=== PATIENT | male | born 1980 | race Two or more races ===

== ENCOUNTER 2018-11-30 12:30 | Outpatient (CLI) | payer OTHER ==
--- NOTE | 2018-11-30 16:49 | MRI Report ---
Reason: PAIN IN LEFT KNEE Procedure Date: 11/30/2018 Accession Number: [id number] / [id number] Procedure: MRI - Knee LT W/O CPT Code: FULL RESULT: EXAM: LEFT KNEE MRI WITHOUT CONTRAST EXAM DATE: 11/30/2018 01:28 PM. CLINICAL HISTORY: Left knee pain for several weeks. COMPARISON: None. TECHNIQUE: Multiplanar, multisequence T1-weighted and fluid-sensitive sequences of the knee without contrast. Other: None. FINDINGS: Bones: No fractures or subluxations. No marrow edema. No bone lesions. Articular Cartilage: Unremarkable. Medial Meniscus: There is a nondisplaced vertical tear of the body of the medial meniscus. Lateral Meniscus: The lateral meniscus is intact. Cruciate Ligaments: The anterior and posterior cruciate ligaments are intact. Collateral Ligaments: The medial collateral and lateral collateral ligamentous structures are intact. Tendons: The quadriceps, patellar, semimembranosus, and popliteus tendons are unremarkable. Musculature: No edema or fatty atrophy. Other: There is a small joint effusion. No popliteal cyst. No loose bodies. The medial and lateral retinacula are intact. The subcutaneous tissues and fat pads are unremarkable. IMPRESSION: 1. Small joint effusion. 2. Nondisplaced vertical tear of the body of the medial meniscus. [facility] MUSCULOSKELET[facility]IOLOGY SECTION
== END 2018-11-30 12:31 | disposition home or self-care (01) ==
LOC: DI 12:30
DX: S83.242A Other tear of medial meniscus, current injury, left knee, initial encounter (principal); M25.462 Effusion, left knee

== ENCOUNTER 2019-02-05 10:51 | Day surgery (SDC) | payer OTHER ==
[2019-02-05] MEDS ORDERED: LACTATED RINGERS 1,000 ML IV ONE (11:01)
[2019-02-05] MEDS ORDERED: CLINDAMYCIN 600 MG/50 ML 50 ML IV ONE (11:01)
[2019-02-05] MEDS ORDERED: BUPIVACAINE 0.25% PF 10 ML VIAL ONE (12:22)
[2019-02-05] MEDS ORDERED: EPINEPHrine 1 MG/ML AMP ONE (12:26)
--- NOTE | 2019-02-05 12:41 | ANESTHESIA ---
Pre-Anesthesia VS, & Labs - Diagnosis Left knee meniscal tear - Procedure Left knee scope Vital Signs: Temp Pulse Resp BP Pulse Ox 36.4 C L 90 16 143/100 H 97 02/05/19 11:08 02/05/19 11:08 02/05/19 11:08 02/05/19 11:08 02/05/19 11:08 Height 5 ft 8 in Weight (kg) 90.72 kg - NPO >8 hours Home Medications and Allergies Allergies/Adverse Reactions: Allergies Allergy/AdvReac Type Severity Reaction Status Date / Time Penicillins Allergy Unknown Verified 01/18/19 10:30 Sulfa (Sulfonamide Allergy Rash Verified 01/18/19 10:30 Antibiotics) Anes History & Medical History - Anesthetic History Anesthesia Complications: reports: No previous complications - Medical History Cardiovascular: reports: None Pulmonary: reports: None Gastrointestinal: reports: None Urinary: reports: None Musculoskeletal: reports: Other Endocrine/Autoimmune: reports: None Skin: reports: None Smoking Status: Former smoker Exam General: Alert Dental: WNL Mouth Opening: Greater than 4 Fingerbreadths Mallampati classification: I Thyromental Distance: greater than 6 cm Respiratory: Lungs clear Cardiovascular: Regular rate Plan Anesthesia Type: General Consent for Procedure(s) Verified and Reviewed: Yes Code Status: Attempt Resuscitation ASA classification: 1-Healthy patient Is this case an emergency?: No
[2019-02-05] MEDS ORDERED: PROPOFOL 200 MG/20 ML VIAL IVP ONE (13:55)
[2019-02-05] MEDS ORDERED: LIDOCAINE-MPF 2% 5 ML VIAL IM ONE (13:55)
[2019-02-05] MEDS ORDERED: MIDAZOLAM 2 MG/2 ML VIAL IVP ONE (13:55)
[2019-02-05] MEDS ORDERED: KETOROLAC 30 MG/ML VIAL IVP ONE (13:55)
[2019-02-05] MEDS ORDERED: ONDANSETRON 4 MG/2 ML VIAL IVP ONE (13:55)
[2019-02-05] MEDS ORDERED: fentaNYL 100 MCG/2 ML VIAL IVP ONE (13:55)
[2019-02-05] MEDS ORDERED: DEXAMETHASONE 4 MG/ML VIAL IVP ONE (13:55)
[2019-02-05] MEDS ORDERED: EPINEPHrine 1 MG/ML AMP IR ONE (13:58)
[2019-02-05] MEDS ORDERED: BUPIVACAINE 0.25% PF 30 ML VIAL SUBQ ONE ×2 (13:58)
[2019-02-05] MEDS ORDERED: ONDANSETRON 4 MG/2 ML VIAL IVP PRN (14:27)
[2019-02-05] MEDS ORDERED: oxyCODONE 5 MG TABLET PO PRN (14:27)
--- NOTE | 2019-02-05 14:34 | OPERATIVE REPORT ---
Operative Report - Other Other Information/Narrative: Date of Surgery: 05 February 2019 Pre-Op Diagnosis: Left knee medial meniscus tear, medial plica Procedure: Left knee arthroscopic medial meniscus debridement, medial plica excision Postop Diagnosis: Same Primary Surgeon: Gera Maravilla Secondary Surgeon: Nadeem THAKUR Complications: None Tourniquet Time: 29 minutes EBL: 5 cc Indication For Surgery: 38-year-old male who has had years of intermittent left knee pain and had one episode of locking some time ago developed constant medial sided left knee pain over the last few months. It was not responsive to conservative measures.. The risks, benefits, and alternatives were discussed. Risks include pain, bleeding, infection, damage to nearby structures and cartilage, lack of symptom relief, need for further surgery, DVT, PE, stroke, and . Written consent was obtained. Examination Under Anesthesia: ROM equal to the contralateral side. Stable dial at 30 & 90 degrees. Stable to varus and valgus stressing at 0 & 30 degrees. 1 a Roldan. Mild glide consistent with the other side on Pivot shift. Small mechanical sensation is felt medially when straightening the knee from a fully flexed position Arthroscopic Findings: No loose bodies. Synovium showed an exuberant fat pad, ligamentum mucosa, and medial plica. Patella cartilage normal. Trochlear cartilage normal. Medial femoral condyle cartilage was largely intact. Medial tibial plateau cartilage was normal. Medial meniscus showed a tear on the underside at the junction of the body and the posterior horn, with an unstable associated flap and degenerative tissue adjacent to it. ACL was intact. PCL was intact. Lateral femoral condyle cartilage intact. Lateral tibial plateau cartilage intact. Lateral meniscus intact. Procedure in Detail: The patient was met in the pre-operative hold area on the day of the procedure. The operative extremity was signed and questions were answered. The patient was brought to the operating room and a general anesthetic was administered. Supine position was used and bony prominences were padded. An examination under anesthesia was performed. Standard prepping and draping was performed. A time out confirmed patient identification, laterality, procedure, allergies, antibiotics, and images. An Esmarch was used to exsanguinate the limb and the tourniquet was elevated to 250 mmHg. A standard diagnostic arthroscopy of the knee was performed through anterolateral and anteromedial portal sites. The anteromedial portal was created under direct visualization after localizing with a spinal needle. The findings can be found above. I then proceeded to use a biter and shaver to debride all unstable and degenerative portions of the medial meniscus. I smoothed out the edges to make no sharp transitions. I then used a shaver to remove all of the medial plica and take down the ligamentum mucosum. Final images were taken and all arthroscopic fluid and instruments were removed from the knee. The incisions were closed with buried monocryl sutures. Steri strips were applied. 20 cc of 0.25% Marcaine without epinephrine was injected near the portal sites. A sterile dressing and compression stocking was placed. The patient was awakened and transferred to recovery in stable condition.
[2019-02-05] MEDS ORDERED: oxyCODONE 5 MG TABLET ONE (15:03)
[2019-02-05 15:14] VITALS: BP 134/86
== END 2019-02-05 10:52 | disposition home or self-care (01) ==
LOC: SDS 10:51
PROVIDERS: ATTEND Orthopaedic Surgery
PROC: 0SBD4ZZ Excision of Left Knee Joint, Percutaneous Endoscopic Approach (ICD-10-PCS; principal; 2019-02-05 12:15)
DX: S83.242A Other tear of medial meniscus, current injury, left knee, initial encounter (principal); M67.52 Plica syndrome, left knee; Z87.891 Personal history of nicotine dependence
CPT/HCPCS: 29881; A9270; J7120

== ENCOUNTER 2019-04-12 11:28 | Emergency (ER) | payer OTHER ==
[2019-04-12] MEDS ORDERED: SODIUM CHLORIDE 0.9% 1,000 ML IV ONE (11:58)
[2019-04-12] MEDS ORDERED: KETOROLAC 30 MG/ML VIAL IVP STA (11:58)
--- NOTE | 2019-04-12 12:01 | ED Physician Documentation ---
PD HPI ABD PAIN - Stated complaint Stated Complaint: MALE /LOWER ABD PX - Chief complaint Chief Complaint: General - History obtained from History obtained from: Patient - History of Present Illness Timing - onset: Today Timing - duration: Minutes Timing - details: Abrupt onset, Still present in ED Pain level max: 8 Pain level now: 8 Quality: Cramping, Sharp, Pain Location: Other (right testicle) Radiation: Right flank Improved by: Other (nothing) Worsened by: Other (nothing) Associated symptoms: Nausea. No: Vomiting Similar symptoms before: Has not had sx before Recently seen: Not recently seen - Additional information Additional information: 38-year-old male in his usual state of good health developed sudden onset of pain in the right testicle which has begun to radiate up into his right flank. There are no modifying factors patient is afebrile and has not vomited. Review of Systems Constitutional: denies: Fever Eyes: denies: Decreased vision Ears: denies: Ear pain Nose: denies: Congestion Throat: denies: Sore throat Respiratory: denies: Cough GI: reports: Abdominal Pain, Nausea : denies: Dysuria, Frequency PD PAST MEDICAL HISTORY - Past Medical History Past Medical History: No Cardiovascular: None Respiratory: None Endocrine/Autoimmune: None GI: None : None HEENT: None Psych: None Musculoskeletal: Other Derm: None - Past Surgical History Past Surgical History: Yes Ortho: Arthroscopic surgery - Present Medications Home Medications: Ambulatory Orders Medication Instructions Recorded Confirmed Hydrocodone/Acetaminophen 1 - 2 each PO Q6H PRN #14 tablet 04/12/19 [Hydrocodon-Acetaminophen 5-325] - Allergies Allergies/Adverse Reactions: Allergies Allergy/AdvReac Type Severity Reaction Status Date / Time Penicillins Allergy Unknown Verified 04/12/19 11:33 Sulfa (Sulfonamide Allergy Rash Verified 04/12/19 11:33 Antibiotics) - Social History Does the pt smoke?: No Smoking Status: Never smoker Does the pt drink ETOH?: Yes Does the pt have substance abuse?: No - Immunizations Immunizations are current?: Yes - POLST Patient has POLST: No PD ED PE NORMAL - Vitals Vital signs reviewed: Yes (hypertensive ) - General General: Alert and oriented X 3, No acute distress, Well developed/nourished - HEENT HEENT: Atraumatic, PERRL, EOMI - Neck Neck: Supple, no meningeal sign, No bony TTP - Cardiac Cardiac: RRR, No murmur - Respiratory Respiratory: No respiratory distress - Abdomen Abdomen: Normal bowel sounds, Soft, Non tender, Non distended, No organomegaly - Back Back: No CVA TTP, No spinal TTP - Derm Derm: Normal color, Warm and dry, No rash - Extremities Extremities: No deformity, No edema - Neuro Neuro: Alert and oriented X 3, display department manager 2-12 intact, No motor deficit, No sensory deficit, Normal speech Eye Opening: Spontaneous Motor: Obeys Commands Verbal: Oriented GCS Score: 15 - Psych Psych: Normal mood, Normal affect Results - Vitals Vitals: Vital Signs - 24 hr 04/12/19 11:31 Temperature 36.6 C Heart Rate 100 Respiratory 14 Rate Blood Pressure 178/104 H O2 Saturation 95 Oxygen O2 Source Room air - Labs Labs: Laboratory Tests 04/12/19 04/12/19 11:45 11:45 WBC 9.7 RBC 5.26 Hgb 15.3 Hct 44.7 MCV 85.0 MCH 29.1 MCHC 34.3 RDW 13.5 Plt Count 199 MPV 10.5 Neut # (Auto) 6.3 Lymph # (Auto) 2.6 Stevens # (Auto) 0.5 Eos # (Auto) 0.2 Baso # (Auto) 0.1 Absolute Nucleated RBC 0.00 Nucleated RBC % 0.0 Sodium 137 Potassium 3.5 Chloride 105 Carbon Dioxide 22 Anion Gap 10.0 BUN 12 Creatinine 1.1 Estimated GFR (MDRD) 76 L Glucose 124 H Calcium 9.5 Total Bilirubin 0.9 AST 50 H ALT 78 H Alkaline Phosphatase 56 Total Protein 7.9 Albumin 4.8 Globulin 3.1 Albumin/Globulin Ratio 1.5 Lipase 34 - Rads (name of study) CT abd/pel without Radiology: Prelim report reviewed (Impression: 1. Numerous punctate nonobstructing bilateral intrarenal calculi as described above. 2. Mild right hydronephrosis without right hydroureter. There is a tiny calculus that is either in the meatus of the distal right ureter or is in the dependent right bladder. 3. Otherwise negative examination.), EMP read indepedently, See rad report Procedures - Bedside sono Bedside sono by EMP: With use of bedside ultrasound the right kidney is imaged it is sonographically nontender and there is evidence of hydronephrosis. PD MEDICAL DECISION MAKING - ED course Complexity details: reviewed results, re-evaluated patient, considered differential, d/w patient ED course: 38-year-old male with acute right flank pain radiating from his testicle has hydronephrosis on bedside ultrasound examination consistent with a distal obstruction and CT scan of the abdomen pelvis is obtained. There is a distal stone on the scan and the patient has multiple intrarenal stones. The patient has good relief of pain with use of intravenous Toradol. Departure - Departure Disposition: 01 Home, Self Care Clinical Impression: Ureterolithiasis Condition: Stable Instructions: ED Stone Renal W Colic Follow-Up: [facility] GRIMM [Primary Care Provider] - Prescriptions: Hydrocodone/Acetaminophen [Hydrocodon-Acetaminophen 5-325] 1 - 2 each PO Q6H PRN #14 tablet PRN Reason: pain
[2019-04-12 12:15] LABS: BASOPHILS # (AUTO) 0.1 10^3/uL (0.0-0.1); BASOPHILS % (AUTO) 0.9 %; EOSINOPHILS # (AUTO) 0.2 10^3/uL (0.0-0.7); EOSINOPHILS % (AUTO) 1.9 %; HGB - HEMOGLOBIN 15.3 g/dL (14.0-18.0); LYMPHOCYTES # (AUTO) 2.6 10^3/uL (1.5-3.5); LYMPHOCYTES % (AUTO) 26.4 %; MEAN CORPUSCULAR HEMOGLOBIN 29.1 pg (27.0-31.0); MEAN CORPUSCULAR HGB CONC 34.3 g/dL (32.0-36.0); MEAN PLATELET VOLUME 10.5 fL (7.4-11.4); MONOCYTES # (AUTO) 0.5 10^3/uL (0.0-1.0); MONOCYTES % (AUTO) 5.5 %; NEUTROPHILS # (AUTO) 6.3 10^3/uL (1.5-6.6); NEUTROPHILS % (AUTO) 65.3 %; PLT - PLATELET COUNT 199 10^3/uL (130-450); RED BLOOD COUNT 5.26 10^6/uL (4.70-6.10); RED CELL DISTRIBUTION WIDTH 13.5 % (12.0-15.0); WHITE BLOOD COUNT 9.7 x10^3/uL (4.8-10.8)
[2019-04-12 12:27] LABS: ALBUMIN 4.8 g/dL (3.2-5.5); ALBUMIN/GLOBULIN RATIO 1.5 (1.0-2.2); BILIRUBIN,TOTAL 0.9 mg/dL (0.2-1.0); CALCIUM 9.5 mg/dL (8.5-10.3); CREATININE 1.1 mg/dL (0.6-1.2); TOTAL PROTEIN 7.9 g/dL (6.7-8.2)
--- NOTE | 2019-04-12 12:55 | CT Report ---
Reason: r testicle pain radiating to r flank hydro on beds Procedure Date: 04/12/2019 Accession Number: [id number] / [id number] Procedure: CT - Abdomen/Pelvis WO CPT Code: FULL RESULT: EXAM: CT ABDOMEN AND PELVIS (CT KUB) EXAM DATE: 04/12/2019 12:24 PM. CLINICAL HISTORY: Right flank pain radiating to scrotum COMPARISONS: None. TECHNIQUE: Routine axial helical CT imaging was performed through the abdomen and pelvis without IV contrast. Reconstructions: Coronal and sagittal. In accordance with CT protocol optimization, one or more of the following dose reduction techniques were utilized for this exam: automated exposure control, adjustment of mA and/or KV based on patient size, or use of iterative reconstructive technique. FINDINGS: Lung Bases: Unremarkable. Right Kidney/Ureter: There are 2 or 3 punctate nonobstructing intrarenal calculi in the 2 mm diameter range. Mild right pelvocaliectasis. No evidence of right hydroureter. There is a tiny punctate calculus either in the meatus of the right UV junction or within the dependent bladder. Left Kidney/Ureter: There are 4-6 punctate nonobstructing intrarenal calculi in the 2 mm diameter range. No evidence of left hydronephrosis or left hydroureter. Other Solid Organs: Noncontrast images of the solid organs are grossly unremarkable. Gallbladder/Bile Ducts: Unremarkable. Peritoneal Cavity: No free fluid, free air or cee adenopathy. Bowel is grossly unremarkable. Pelvic Organs: No bladder stones or wall thickening. Noncontrast images of the visualized pelvic organs are unremarkable. Vasculature: Unremarkable. Other: None. IMPRESSION: 1. Numerous punctate nonobstructing bilateral intrarenal calculi as described above. 2. Mild right hydronephrosis without right hydroureter. There is a tiny calculus that is either in the meatus of the distal right ureter or is in the dependent right bladder. 3. Otherwise negative examination. [facility]
[2019-04-12 13:07] LABS: BILIRUBIN,URINE NEGATIVE (NEGATIVE); GLUCOSE, URINE (UA) NEGATIVE (NEGATIVE); KETONES,URINE (UA) NEGATIVE (NEGATIVE); LEUKOCYTE ESTERASE, URINE NEGATIVE (NEGATIVE); NITRITE,URINE NEGATIVE (NEGATIVE); OCCULT BLOOD,URINE MODERATE (NEGATIVE); PH,URINE 7.5 PH (5.0-7.5); PROTEIN,URINE NEGATIVE (NEGATIVE); UROBILINOGEN,URINE 0.2 (NORMAL) E.U./dL (NORMAL)
[2019-04-12 13:19] LABS: CLARITY,URINE CLEAR (CLEAR)
[2019-04-12 13:21] LABS: RBC,URINE 0-5 /HPF (0-5); SQUAMOUS EPITHELIAL CELL,UR RARE Squamous (<= Few); WBC CLUMPS,URINE NONE SEEN
[2019-04-12 13:22] LABS: BACTERIA,URINE None Seen /HPF (None Seen)
[2019-04-12 13:41] VITALS: BP 148/88
== END 2019-04-12 13:41 | disposition home or self-care (01) ==
LOC: ED 11:28
DX: N13.2 Hydronephrosis with renal and ureteral calculous obstruction (principal)
CPT/HCPCS: 74176; 80053; 81001; 81003; 83690; 85025; 87086; 96361; 96374; 99283; 99284